=== PATIENT | female | born 1990 | race Caucasian/White ===

== ENCOUNTER → 2018-05-10 | Outpatient (REF) ==
[~2018-05-10] MED LIST: CEPH-13 PO; HYDR-653 PO
[2018-05-10 11:08] LABS: LDL CHOLESTEROL 156 mg/dl
== END ==
DX: Z02.9 Encounter for administrative examinations, unspecified (principal)

== ENCOUNTER → 2018-06-06 | Outpatient (CLI) | payer BC, OTHER ==
--- NOTE | 2018-06-06 11:30 | RADIOLOGY IMAGING REPORT ---
FACILITY: [facility] [place] PATIENT NAME: Jeanna Diaz : 1990 MR: [id number] V: [id number] EXAM DATE: ORDERING PHYSICIAN: CATHERINE MANDEL TECHNOLOGIST: Location: [facility] Patient: Jeanna Diaz : 1990 Visit/Account:[id number] Date of Sevice: 06/06/2018 THYROID HISTORY: Thyromegaly COMPARISON: None. FINDINGS: SIZE: Right lobe: 4.9 x 1.05 x 2.3 cm Left lobe: 4.5 x 0.85 x 1.9 cm Isthmus: 2.7 mm PARENCHYMA: Homogeneous. NODULES: Right lobe: * There is a 6.6 mm cyst in the lateral aspect mid right lobe Left lobe: * None discrete. Isthmus: * None discrete. VASCULARITY: Within normal limits. ADDITIONAL FINDINGS: None. IMPRESSION: 6.6 mm cyst in the lateral mid right lobe REFERENCE: 2015 [employer] Management Guidelines for Adult Patients with Thyroid Nodules and D ifferentiated Thyroid Cancer: The [employer] Guidelines Task Force on Thyroid Nodul es and Differentiated Thyroid Cancer. SONOGRAPHIC PATTERNS: * Benign: Purely cystic nodules (no solid component); estimated risk of malignancy <1 percent; no bi opsy recommended. * Very Low Suspicion: Spongiform or partially cystic nodules without any of the sonographic features described in low, intermediate, or high suspicion patterns; estimated risk of malignancy <3 percent; consider FNA at > 2 cm (Observation without FNA is also a reasonable option). * Low Suspicion: Isoechoic or hyperechoic solid nodule, or partially cystic nodule with eccentric so lid areas, without microcalcification, irregular margin or ETE (extra-thyroidal extension), or taller than wide shape; estimated risk of malignancy 5-10 percent; recommend FNA at >1.5 cm. * Intermediate Suspicion: Hypoechoic solid nodule with smooth margins without microcalcifications, E TE (extra-thyroidal extension), or taller than wide shape; estimated risk of malignancy 10-20 percent ; recommend FNA at > 1 cm. * High Suspicion: Solid hypoechoic nodule or solid hypoechoic component of a partially cystic nodule with one or more of the following features: irregular margins (infiltrative, microlobulated), microc alcifications, taller than wide shape, rim calcifications with small extrusive soft tissue component, evidence of ETE (extra-thyroidal extension); estimated risk of malignancy >70-90 percent; recommend FNA at > 1 cm. NOTES: * Although a sonographically suspicious subcentimeter thyroid nodule without evidence of extrathyroi christopher extension or sonographically suspicious lymph nodes may be observed with close sonographic follow -up rather than pursuing immediate FNA, patient age and preference may modify decision-making. A > 50% interval increase in nodule volume and/or development of new suspicious sonographic features are felt to be a valid reasons for potential re-aspiration of a nodule previously shown to have benig n FNA cytology. Report Dictated By: Wanda Rudolph MD at 06/06/2018 11:23 AM Report E-Signed By: Wanda Rudolph MD at 06/06/2018 11:25 AM WSN:[email or web address]
--- NOTE | 2018-06-06 11:58 | RADIOLOGY IMAGING REPORT ---
[facility] PATIENT NAME: Jeanna Diaz : 1990 MR: [id number] V: [id number] EXAM DATE: ORDERING PHYSICIAN: CATHERINE MANDEL TECHNOLOGIST: Location: [facility] - [place] Patient: Jeanna Diaz : 1990 Visit/Account:[id number] Date of Sevice: 06/06/2018 PELVIC HISTORY: Three. X2 years TECHNIQUE: Transvaginal and transabdominal ultrasound pelvis. COMPARISON: CT abdomen and pelvis August 11, 2016 FINDINGS: Uterus: ; 8.4 cm length x 3.8 cm AP x 4.6 cm transverse. Myometrium: Unremarkable. Endometrium: Unremarkable; double thickness 10.1 mm. Cervix: Nabothian cysts. Ovaries: Right - 2.5 x 2.3 x 2.1 cm Left - 2.4 x 2.5 x 1.7 cm Blood flow is documented in each ovary by duplex Doppler ultrasound. Adnexa: Grossly unremarkable. Free pelvic fluid: None. IMPRESSION: Nabothian cyst otherwise unremarkable pelvic ultrasound Report Dictated By: Wanda Rudolph MD at 06/06/2018 11:53 AM Report E-Signed By: Wanda Rudolph MD at 06/06/2018 11:54 AM WSN:[email or web address]
--- NOTE | 2018-06-11 09:49 | RADIOLOGY IMAGING REPORT ---
FACILITY: [facility] - [place] PATIENT NAME: Jeanna Diaz : 1990 MR: [id number] V: [id number] EXAM DATE: ORDERING PHYSICIAN: CATHERINE MANDEL TECHNOLOGIST: [place] [facility] [place] Patient: Jeanna Diaz : 1990 Visit/Account:[id number] Date of Sevice: 06/06/2018 CHEST PA LAT Additional pertinent History: SOB COMPARISON STUDIES: none FINDINGS: Support lines and catheters: None Lungs and Pleura: Lung moreno well expanded with no infiltrates or consolidations. No parenchymal ma ss lesions are seen. There are no effusions Heart and vasculature: Negative. Akiko and Mediastinum: Negative. Bones and Chest wall: Negative. Upper Abdomen: Negative. IMPRESSION: 1. Normal chest Report Dictated By: Reagan Huffman MD at 06/11/2018 9:43 AM Report E-Signed By: Reagan Huffman MD at 06/11/2018 9:44 AM WSN:[email or web address]
== END ==
LOC: US 00:53
PROVIDERS: ATTEND Family Medicine
DX: E04.2 Nontoxic multinodular goiter (principal); N88.8 Other specified noninflammatory disorders of cervix uteri; R06.02 Shortness of breath
CPT/HCPCS: 71046; 76536; 76830; 76856

== ENCOUNTER → 2018-06-28 | Outpatient (CLI) | payer OTHER ==
[~2018-06-28] MED LIST changes: +IOPAMIDOL 76% 75 ML INFUS BTL 75 ML ONE
--- NOTE | 2018-06-28 13:34 | RADIOLOGY IMAGING REPORT ---
[place] [facility] [place]: Jeanna Diaz : 1990 MR: [id number] V: [id number] EXAM DATE: ORDERING PHYSICIAN: CATHERINE MANDEL TECHNOLOGIST: Location: [facility] [place] Patient: Jeanna Diaz : 1990 Visit/Account:[id number] Date of Sevice: 06/28/2018 CT ABDOMEN WITH IV CONTRAST CLINICAL INFORMATION: Shortness of breath, history of dysphasia, history of diaphragmatic hernia TECHNIQUE: Axial CT images were obtained through the abdomen during injection of nonionic iodinated intravenous contrast. Reformatted coronal and sagittal images were also obtained.Dose Lowering Techn ique One of the following dose optimization techniques was utilized in the performance of this exam: Autom ated exposure control; adjustment of the mA and/or kV according to the patient's size; or use of an i terative reconstruction technique. Specific details can be referenced in the facility's radiology C T exam operational policy. CONTRAST: 75 mL of Isovue 370 IV contrast. COMPARISON: CT on pelvis August 11, 2016. FINDINGS: Lower lung moreno: Limited views lower lung field are unremarkable. Liver: 1.5 x 1.1 x 1.8 cm hypoattenuating mass which does not appear to represent a simple cyst. On the delayed images the borders appear more isodense relative to the surrounding liver. This may have been present on the prior study although was not very apparent due to the noncontrast nature the lele or examination there for direct comparison is not possible. Biliary: Gallbladder appears unremarkable as well as the intra and extra hepatic biliary system. Pancreas: Normal appearance. Spleen: Normal appearance. Adrenal glands: Unremarkable. Kidneys / retroperitoneum: No evidence of nephrolithiasis or hydronephrosis Bowel / peritoneum / mesenteries: The visualized small and large bowel appear unremarkable. Lymph node assessment: No pathologic adenopathy identified. Vessels: No significant atherosclerotic calcification seen throughout a nonaneurysmal abdominal aorta and branches. Musculoskeletal / Body wall: Small Schmorl's nodes identified in the thoracolumbar spine. There are several small ovoid protuberances extending into the right hemidiaphragm. These may represent areas of focal eventration and appear similar to the prior study IMPRESSION: 1. There is a 1.5 x 1.1 x 1.8 cm hyperattenuating mass right lobe of the liver which does not appear to represent a cyst. This could be further evaluated with MR the liver with and without contrast There are several small ovoid protuberances extending into the right hemidiaphragm which may represen t areas of focal eventration and appear similar to the prior study Report Dictated By: Wanda Rudolph MD at 06/28/2018 12:00 PM Report E-Signed By: Wanda Rudolph MD at 06/28/2018 1:29 PM WSN:[email or web address]
--- NOTE | 2018-06-28 13:38 | RADIOLOGY IMAGING REPORT ---
FACILITY: [facility] PATIENT NAME: Jeanna Diaz : 1990 MR: [id number] V: [id number] EXAM DATE: ORDERING PHYSICIAN: CATHERINE MANDEL TECHNOLOGIST: Location: [facility] [place] Patient: Jeanna Diaz : 1990 Visit/Account:[id number] Date of Sevice: 06/28/2018 CT CHEST (CONTRAST) History: Shortness of breath, history of dysphasia, history of diaphragmatic hernia TECHNIQUE: Contiguous axial images were performed through the chest to the level of the adrenal gla nds following the administration of IV contrast. Coronal and sagittal reformatting was also perform ed.Dose Lowering Technique One of the following dose optimization techniques was utilized in the performance of this exam: Autom ated exposure control; adjustment of the mA and/or kV according to the patient's size; or use of an i terative reconstruction technique. Specific details can be referenced in the facility's radiology C T exam operational policy. Contrast: 75 mL Isovue-370 COMPARISON STUDIES: CT of abdomen pelvis August 11, 2016. Lungs / Pleura: At least three well-circumscribed hypoattenuating protuberances extend cephalad fro m the right hemidiaphragm. These may represent areas of focal eventration and appear similar to the prior abdomen CT Mediastinum/nodes: negative. Heart and vessels: negative. Musculoskeletal / Body wall: There several Schmorl's nodes in the thoracolumbar spine Upper abdomen: There is an ovoid hypoattenuating mass in the right lobe of the liver which is discu ssed in today's CT of the abdomen report IMPRESSION: There several well-circumscribed hypoattenuating protuberances extending cephalad from the right lucas diaphragm which may represent areas of focal eventration. These appear some are to the prior CT. There is an ovoid hyperattenuating mass right lobe of the liver which is discussed in today's CT of a bdomen report. Report Dictated By: Wanda Rudolph MD at 06/28/2018 1:29 PM Report E-Signed By: Wanda Rudolph MD at 06/28/2018 1:34 PM WSN:[email or web address]
== END ==
LOC: CT 03:07
PROVIDERS: ATTEND Family Medicine
DX: R06.02 Shortness of breath (principal); R13.10 Dysphagia, unspecified; Z87.19 Personal history of other diseases of the digestive system
CPT/HCPCS: 71260; 74160; Q9967

== ENCOUNTER → 2018-07-12 | Outpatient (CLI) | payer OTHER ==
[~2018-07-12] MED LIST changes: +GADOBENATE 529MG/1ML 15ML VIAL IVP ONE; -IOPAMIDOL 76% 75 ML INFUS BTL 75 ML ONE; +NS(*) 0.9% 50 ML BAG 50 ML ONE
--- NOTE | 2018-07-12 17:29 | RADIOLOGY IMAGING REPORT ---
FACILITY: [facility] PATIENT NAME: Jeanna Diaz : 1990 MR: [id number] V: [id number] EXAM DATE: ORDERING PHYSICIAN: CATHERINE MANDEL TECHNOLOGIST: Location: [facility] [place] Patient: Jeanna Diaz : 1990 Visit/Account:[id number] Date of Sevice: 07/12/2018 MR ABDOMEN W & W/O CON HISTORY: History of diaphragmatic hernia, indeterminate findings on recent CT. TECHNIQUE: Multiplanar multisequence magnetic resonance imaging of the abdomen without and with intr avenous contrast. CONTRAST: 20 mL MultiHance IV COMPARISON: CT 06/28/2018, CT 08/21/2016 FINDINGS: Visualized lung bases: Nodular foci at the right lung base along hemidiaphragm are nonspecific but u nchanged when compared to remote prior CT of 2016 and possibly sequela of patient's reported history of diaphragmatic hernia. Liver: Within normal limits for size and morphology. No gross steatosis. Within the dome of posterio r segment right hepatic lobe and corresponding with findings on recent CT is a T2 hyperintense 1.3 x 1.7 cm lesion. Following contrast administration, this demonstrates progressive centripetal nodular e nhancement isointense to blood pool and consistent with a benign cavernous hemangioma. A subtle subc entimeter cyst is also present within the more central aspects of the posterior segment right lobe (07/28). Gallbladder: Negative. Bile ducts: Nondistended and grossly unremarkable. Spleen: Negative. Adrenals: Negative. Pancreas: Negative. Kidneys/: Negative. Visualized GI: Negative. Vessels/spaces/nodes: No adenopathy. No ascites. Bones/soft tissues: Unremarkable. IMPRESSION: 1. Small benign cavernous hemangioma right hepatic lobe corresponding with findings on recent CT. 2. Incidentally noted subcentimeter also benign cyst right hepatic lobe. Report Dictated By: Samuel Sosa MD at 07/12/2018 5:17 PM Report E-Signed By: Samuel Sosa MD at 07/12/2018 5:25 PM WSN:[id number]
== END ==
LOC: MRI 02:38
PROVIDERS: ATTEND Family Medicine
DX: D18.03 Hemangioma of intra-abdominal structures (principal); K76.89 Other specified diseases of liver
CPT/HCPCS: 74183; A9577; J7050

== ENCOUNTER → 2018-11-22 | Outpatient (CLI) | payer OTHER ==
[~2018-11-22] MED LIST changes: -GADOBENATE 529MG/1ML 15ML VIAL IVP ONE; -NS(*) 0.9% 50 ML BAG 50 ML ONE
--- NOTE | 2018-11-22 11:31 | RADIOLOGY IMAGING REPORT ---
[place] [facility] [place]: Jeanna Diaz : 1990 MR: [id number] V: [id number] EXAM DATE: ORDERING PHYSICIAN: HARRY LLOYD TECHNOLOGIST: Location: [facility] Patient: Jeanna Diaz : 1990 Visit/Account:[id number] Date of Sevice: 11/22/2018 SHOULDER MIN 2 VIEWS LEFT Indication: Shoulder pain, Comparison: Unavailable Findings: There is no acute fracture-dislocation of the left glenohumeral joint. Mild cortical irregularity of the inferior glenoid is noted. Limited views of the left upper lung zone are unremarkable. Visualized left acromioclavicular joint is unremarkable. IMPRESSION: 1. No acute osseous abnormality left shoulder. Report Dictated By: Jose Francisco Wallis at 11/22/2018 11:22 AM Report E-Signed By: Jose Francisco Wallis at 11/22/2018 11:23 AM WSN:[email or web address]
== END ==
LOC: RAD 10:10
PROVIDERS: ATTEND Orthopaedic Surgery
DX: M25.512 Pain in left shoulder (principal)

== ENCOUNTER → 2018-12-06 | Outpatient (CLI) | payer OTHER ==
[2018-12-06 10:01] LABS: LDL CHOLESTEROL 180 mg/dl
== END ==
LOC: LAB 08:35
PROVIDERS: ATTEND Family Medicine
DX: E78.5 Hyperlipidemia, unspecified (principal)
CPT/HCPCS: 36415; 82040; 82247; 82310; 82374; 82435; 82465; 82565; 82947; 83718; 84075; 84132; 84155; 84295; 84450; 84460; 84478; 84520

== ENCOUNTER → 2018-12-24 | Outpatient (CLI) | payer OTHER ==
[~2018-12-24] MED LIST changes: +GADOBENATE 529MG/1ML 5 ML VIAL ONE; +IOPAMIDOL-200 50 ML VIAL IS ONE; +LIDOCAINE MPF 1% 5 ML VIAL ONE; +NS 0.9% 20 ML SDV 20 ML ONE
--- NOTE | 2018-12-24 11:35 | RADIOLOGY IMAGING REPORT ---
[place] [facility] [place] NAME: Jeanna Diaz : 1990 MR: [id number] V: [id number] EXAM DATE: ORDERING PHYSICIAN: HARRY LLOYD TECHNOLOGIST: Location: [facility] Patient: Jeanna Diaz : 1990 Visit/Account:[id number] Date of Sevice: 12/24/2018 Exam type: XR ARTHROGRAM SHOULDER LT History: Left shoulder pain Comparison: Left shoulder series November 22, 2018. Findings: Informed consent was obtained. The left shoulder was prepped and draped usual sterile fashion. Loca l anesthesia was accomplished with 1% lidocaine. Under fluoroscopic guidance a dilute gadolinium shelley pension mixed with Isovue-200 was instilled into the anterior aspect the left shoulder joint. The pr ocedure was accomplished without apparent complication. The patient went to for further imaging. The dose area product was 116.67 micro-Villalpando per meter squared IMPRESSION: 1. Successful fluoroscopically guided left shoulder arthrogram Report Dictated By: Wanda Rudolph MD at 12/24/2018 11:25 AM Report E-Signed By: Wanda Rudolph MD at 12/24/2018 11:26 AM JAGRUTIN:[email or web address]
--- NOTE | 2018-12-24 13:56 | RADIOLOGY IMAGING REPORT ---
FACILITY: [facility] - [place] PATIENT NAME: Jeanna Diaz : 1990 MR: [id number] V: [id number] EXAM DATE: ORDERING PHYSICIAN: HARRY LLOYD TECHNOLOGIST: Location: [facility] Patient: Jeanna Diaz : 1990 Visit/Account:[id number] Date of Sevice: 12/24/2018 MR SHOULDER LT W/CON COMPARISON: Images from a left shoulder arthrogram earlier today, performed by another physician. HISTORY: L shoulder injury playing softball 15 years ago. Left shoulder pain, instability/injury. TECHNIQUE: Post arthrogram MRI left shoulder. CONTRAST: Prior to this exam, a dilute gadolinium containing mixture was injected into the left tutu ohumeral joint. Please see conventional arthrogram report separately for details regarding intra-savage cular contrast. Intravenous contrast was not given. FINDINGS: ROTATOR CUFF: Normal-appearing supraspinatus, infraspinatus and teres minor tendons. Mild intermedia te signal in the subscapularis tendon. Contrast imbibing longitudinal defect throughout the length of the subscapularis tendon which could either be iatrogenic/related to injection approach or due to a mild partial-thickness interstitial tear. There is no muscle atrophy or edema. Injected contrast infi ltrates the subscapularis muscle which is a common finding after injection. BICEPS: The long head of biceps tendon is normal in caliber and signal. The extra-articular segment is normally positioned within the intertubercular sulcus. FLUID/BURSA: Iatrogenic left humeral effusion containing gadolinium. No evidence of subacromial/subd eltoid bursitis. GLENOHUMERAL JOINT: There is no significant osteoarthritis. Motion artifact on axial series limits labral assessment. Mild apparent irregularity of the posterior labrum at the posterior 9:00 position for example series 3 image suspicious for nondisplaced tear in the posterior labrum. Abnormal thinni ng/irregularity of the anterior band of the inferior glenohumeral ligament, suspicious for a complete or near complete thickness tear at the humeral insertion. There is no avulsed bone fragment identifi ed. AC JOINT: There is no acromioclavicular osteoarthritis. Type I acromion without subacromial spur or os acromiale. BONES: There is no osseous malalignment or marrow signal abnormality. There is no Hill-Sachs deformi ty or osseous Bankart lesion. OTHER: Negative. IMPRESSION: 1. Mild left subscapularis tendinosis. Contrast imbibing longitudinal defect throughout the length o f the tendon leading up to the insertion. Represent a mild partial-thickness interstitial tear in the tendon or it could be iatrogenic. 2. High-grade versus complete tear of the anterior band of the inferior glenohumeral ligament at its humeral insertion. 3. Limited labral assessment due to motion artifact with focal irregularity at the posterior 9:00 po sition suspicious for a nondisplaced labral tear. Report Dictated By: Grant Hernandez at 12/24/2018 1:35 PM Report E-Signed By: Grant Hernandez at 12/24/2018 1:47 PM WSN:[email or web address]
== END ==
LOC: MRI 01:06
PROVIDERS: ATTEND Orthopaedic Surgery
DX: M75.22 Bicipital tendinitis, left shoulder (principal)
CPT/HCPCS: 23350; 73040; 73222; A9577; J2001; J7050; Q9966